=== PATIENT | male | born 1940 | race Caucasian/White ===

== ENCOUNTER 2018-06-15 19:44 | Inpatient (IN) ==
[2018-06-16] MEDS ORDERED: ONDANSETRON INJ 2 MG/ML 2 ML VIAL IV PRN (11:02)
[2018-06-16] MEDS ORDERED: MAGNESIUM HYDROXIDE SUSP 30 ML UDC PO PRN (11:02)
[2018-06-16] MEDS ORDERED: NITROGLYCERIN SL 0.4 MG/TAB TAB SL PRN (13:22)
[2018-06-16] MEDS ORDERED: GLUCOSE 40% GEL 15 GM TUBE PO PRN (13:24)
[2018-06-16] MEDS ORDERED: GLUCAGON FOR INJ 1 MG VIAL SQ PRN (13:24)
[2018-06-16] MEDS ORDERED: GLUCOSE 10 TABS/TUBE PO PRN (13:24)
[2018-06-16] MEDS ORDERED: CARBOHYDRATES FOR HYPOGLYCEMIA PO PRN (13:24)
[2018-06-16] MEDS ORDERED: DEXTROSE 50% 50 ML SYRINGE IV PRN (13:24)
--- NOTE | 2018-06-16 13:28 | History & Physical Report ---
Date of Service June 16, 2018 Assessment & Plan (1) GIB (gastrointestinal bleeding): Hx of same with work-up started at [facility], however pt left AMA prior to completion of workup States non-dx c-scope there, records requested Upon returning home, pt resumed eliquis and plavix and noted black stool GI c/s pending Hb 4.[address] [facility] ED -> 4 units PRBC -> 9.7 -> 9.2 Repeat CBC pending Imaging done at [facility] awaiting upload to system, will hold on further imaging for now NPO Protonix (2) SOB (shortness of breath): Resolved s/p transfusion Monitor Baseline is 4L O2 continuous (3) Hyperlipidemia: Holding statin (4) HTN (hypertension): continue home meds (5) GERD (gastroesophageal reflux disease): Protonix BID (6) Depression: continue home meds (7) DM type 2 (diabetes mellitus, type 2): SSI PRN while NPO (8) COPD (chronic obstructive pulmonary disease): continue home meds 4L O2 baseline continuous (9) CHF (congestive heart failure): continue home meds (10) CAD (coronary artery disease): Hx of stents Resume plavix when able (11) Afib: Resume eliquis when able (12) ARF (acute renal failure): Uncertain baseline cr Monitor with IVF Repeat cr pending (13) Iron deficiency: Holding iron for now (14) DVT prophylaxis: SCDs given above History of Present Illness Primary Care Provider: NO PCP 77 y/o M who was transferred here from [facility] ED for sx GIB. Pt with hx of same issue and was admitted to [facility]. He was transfused there. He states he had a c-scope but was told he did not drink enough prep and they could not see his colon well enough for a conclusion scope. It appears that at that time pt became frustrated and left AMA. Upon return to home, he resumed his blood thinners. Pt presented to the ED at [facility] on 06/14 with SOB. He had been accepted back to [facility] for continuation of work-up, however I received a call at 7p on 06/15 from the ED at [facility] stating that pt had been there for over 24 hours awaiting transfer but that [place] still did not have a bed. Pt received 4 units PRBC while at [facility]. Hb was 4.9 on presentation, rechecks were 9.7 -> 9.2. There were no labs from today. There is no GI care at [facility] and given length of time pt waited for acceptance to [place], pt was approved for transfer to [facility] for ongoing workup. Pt states his SOB is resolved. He states he is on 4L O2 at baseline and feels much better. Pt states that prior to coming to the ED at [facility] on 06/14, he noted black stools. No diarrhea. No chest pain. Pt denies fever, abd pain, n/v, LE pain or swelling. Allergies Allergy/AdvReac Type Severity Reaction Status Date / Time Penicillins Allergy Intermediate Unknown Verified 06/16/18 13:10 codeine Allergy Unknown Unknown Verified 06/16/18 13:10 diazepam Allergy Unknown Unknown Verified 06/16/18 13:10 niacin Allergy Unknown Unknown Verified 06/16/18 13:10 narcotics Allergy Unknown Uncoded 06/16/18 13:11 Home Medications Home Medications Medication Instructions Recorded Confirmed Type albuterol sulfate [ProAir HFA] 1 puff INHALATION Q4H PRN 06/16/18 06/16/18 History apixaban [Eliquis] 5 mg PO BID 06/16/18 06/16/18 History atorvastatin 80 mg PO DAILY 06/16/18 06/16/18 History carvedilol [Coreg] 25 mg PO BID 06/16/18 06/16/18 History clopidogrel [Plavix] 75 mg PO DAILY 06/16/18 06/16/18 History ferrous sulfate [iron] 150 mg PO DAILY 06/16/18 06/16/18 History rkrctbghpoz-aszjykhsd-jjceedqv 1 inh INHALATION DAILY 06/16/18 06/16/18 History [Trelegy Ellipta] folic acid 1 mg PO DAILY 06/16/18 06/16/18 History furosemide [Lasix] 40 mg PO DAILY 06/16/18 06/16/18 History hypromellose [Gonak] 1 drp OPHTHALMIC (EYE) QID PRN 06/16/18 06/16/18 History insulin aspart U-100 [Novolog 4 unit SUBCUT ACHS 06/16/18 06/16/18 History Flexpen U-100 Insulin] insulin glargine U-300 conc 15 unit SUBCUT DAILY 06/16/18 06/16/18 History [[place] SoloStar U-300 Insulin] nitroglycerin [Nitrostat] 0.4 mg SUBLINGUAL DIRECTED PRN 06/16/18 06/16/18 History omega-3 fatty acids-fish oil [Fish 1,000 cap PO DAILY 06/16/18 06/16/18 History Oil] pantoprazole [Protonix] 40 mg PO DAILY 06/16/18 06/16/18 History pregabalin [Lyrica] 75 mg PO BID 06/16/18 06/16/18 History ranitidine HCl [Zantac] 300 mg PO DAILY 06/16/18 06/16/18 History spironolactone [Aldactone] 12.5 mg PO DAILY 06/16/18 06/16/18 History Past Med/Surg History Family History Father Heart attack Social History Current Living Situation: Spouse Other Information That Helps Us Care for You: No Feels Safe at Home: Yes Safety Concerns: Feels Safe At This Time Smoking Status: Former smoker Smoking End Date: 2007 Hx Alcohol Use: No Hx Substance Use: No Beliefs That Will Affect Care: None Preferred Language: Occitan Communication Ability: Effective Reel Cutter Required: No Review of Systems Pertinent positives and negatives reviewed in HPI--all others negative Physical Exam 2 Vital Signs (Past 24 Hours): Last Vital Signs Temp 36.4 C L 06/16/18 10:53 Pulse 72 06/16/18 10:53 Resp 18 06/16/18 10:53 BP 168/68 H 06/16/18 10:53 Pulse Ox 94 06/16/18 10:53 Constitutional: WD/WN, vitals as above Eyes: normal visual alcantar by confrontation and + anicteric sclerae Neck: normal visual inspection and trachea midline Respiratory: normal respiratory effort, lungs clear to auscultation Cardiovascular: Rate/Rhythm: regular rate and regular rhythm Gastrointestinal (Abdomen): Inspection/Auscultation: abdomen not distended Percussion/Palpation: abdomen soft; abdomen nontender Musculoskeletal: Head/Neck/Chest: normocephalic and head atraumatic negative for edema, peripheral pulses intact Skin: no rashes, warm and dry Neurologic: awake; not confused Speech / Cognition: normal speech Psychiatric: A+Ox3, euthymic affect Code Status & VTE Plan Code Status Full code VTE Prophylaxis Plan VTE Prophylaxis will be ordered: Yes
[2018-06-16] MEDS ORDERED: ALBUTEROL HFA 8 GM INHALER INH PRN (14:00)
[2018-06-16 14:04] LABS: Basophils # (auto) 0.02 K/uL (0-0.2); Basophils % (auto) 0.2 %; Eosinophils # (auto) 0.21 K/uL (0-0.5); Eosinophils % (auto) 2.6 %; Hematocrit (blood only) 31.5 % (42-52); Immature Granulocytes # (auto) 0.04 K/uL (0.00-0.02); Immature Granulocytes % (auto) 0.5 %; Lymphocytes # (auto) 0.86 K/uL (1.2-3.4); Lymphocytes % (auto) 10.6 %; Mean Corpuscular Hgb Conc 31.7 g/dL (32-36); Mean Corpuscular Volume 90.5 fL (80-100); Mean Platelet Volume 10.7 fL (7.4-10.4); Monocytes # (auto) 0.46 K/uL (0.11-0.59); Monocytes % (auto) 5.7 %; Neutrophils % (auto) 80.4 %; Platelet Count 137 K/uL (130-400); RDW Coefficient of Variation 18.6 % (11.5-14.5); RDW Standard Deviation 57.2 fL (36.4-46.3); Red Blood Count 3.48 M/uL (4.7-6.1); White Blood Count 8.09 K/uL (4.8-10.8)
[2018-06-16] MEDS: D5NSS + 20MEQ KCL 20 MEQ/1,000 ML BAG IV SCH (14:17)
[2018-06-16 14:23] LABS: Albumin Level 3.1 gm/dl (3.4-5.0); Bilirubin Direct 0.1 mg/dl (0-0.2); Bilirubin,Total 0.5 mg/dl (0.2-1); Total Protein 6.4 gm/dl (6.4-8.2)
[2018-06-16] MEDS ORDERED: Nursing to Pharmacy Communication ONE (15:31)
[2018-06-16] MEDS ORDERED: INSULIN ASPART 100 UNITS/ML 3 ML PEN SC SCH (16:30)
--- NOTE | 2018-06-16 17:45 | CT Scan Report ---
CT abd pelvis oral con only CT DOSE: 612.69 mGy.cm HISTORY: acute blood loss anemia TECHNIQUE: Multiaxial CT images of the abdomen and pelvis were performed following the use of oral co ntrast. A dose lowering technique was utilized adhering to the principles of ALARA. COMPARISON STUDY: None. FINDINGS: Dependent basilar atelectasis with moderate peribronchial thickening. Probable infiltrate o f the lingula. Liver spleen and pancreas are unremarkable. Gallstones are present within the gallblad logan lumen. There are multiple bilateral renal as well as renal vascular calcifications. These are non obstructive finding. As 1 cm hyperdense cyst lower pole left kidney. Operative changes consistent with a prior ventral hernia repair. Small medical of bowel considered no nobstructive right anterior abdominal wall. Mildly distended bladder. Considerable atherosclerotic ch trina of the abdominal aorta as well as iliac vasculature with multifocal areas of significant narrowi ng. 5 mm nonobstructing calculus distal right ureter. IMPRESSION: 1. Nonobstructive bowel pattern. 2. Gallstones. 3. Bibasilar atelectatic change with a probable lingular infiltrate. 4. 5 mm nonobstructing distal right ureteral calculus. 6. Considerable atherosclerotic change of the abdominal and pelvic arterial vasculature with multifoc al areas of significant stenotic change. 7. Ventral hernia repair with 2 adjacent bowel containing nonobstructive ventral hernias. 8. Nonobstructive bowel pattern. The above report was generated using voice recognition software. It may contain grammatical, syntax or spelling errors. Electronically signed by: Rios Knott M.D. 06/16/2018 5:44 PM
[2018-06-16] MEDS: INSULIN ASPART 100 UNITS/ML 3 ML PEN SC SCH (18:27)
[2018-06-16] MEDS: CARVEDILOL 25 MG TAB PO SCH (20:23)
[2018-06-16] MEDS: PREGABALIN 75 MG CAP PO SCH (20:23)
[2018-06-16] MEDS: PANTOprazole 40 MG in SYRINGE 0 ML IV SCH (20:24)
[2018-06-17] MEDS: INSULIN ASPART 100 UNITS/ML 3 ML PEN SC SCH ×4 (00:11→21:06)
[2018-06-17] MEDS: D5NSS + 20MEQ KCL 20 MEQ/1,000 ML BAG IV SCH (00:14)
[2018-06-17 07:11] LABS: BUN Creatinine Ratio 41.3 (10-20); Calcium 8.4 mg/dl (8.5-10.1); Creatinine Clr Calc Pharmacy 35.3 ml/min; Est GFR (African American) 46.1; Est GFR (Non-African American) 39.7; Potassium 4.4 mmol/L (3.5-5.1)
[2018-06-17] MEDS: PANTOprazole 40 MG in SYRINGE 0 ML IV SCH (08:10)
[2018-06-17] MEDS: CARVEDILOL 25 MG TAB PO SCH ×2 (08:11→21:05)
[2018-06-17] MEDS: ATORVASTATIN 40 MG TAB PO SCH (08:12)
[2018-06-17] MEDS: SPIRONOLACTONE 25 MG TAB PO SCH (08:12)
[2018-06-17] MEDS: PREGABALIN 75 MG CAP PO SCH ×2 (08:15→21:05)
[2018-06-17] MEDS: SODIUM CHLORIDE 0.45 % 1,000 ML IV SCH ×2 (08:21→21:06)
--- NOTE | 2018-06-17 08:46 | Consultation Report ---
DATE OF CONSULTATION: 06/16/2018 GASTROENTEROLOGY CONSULTATION RACE: . ATTENDING PHYSICIAN: Omayra Barron MD CONSULTING PHYSICIAN: Moe Morgan DO REASON FOR CONSULTATION: GI bleed. HISTORY OF PRESENT ILLNESS: Fred Livingston is a 77-year-old male who was transferred today to our facility from [facility] for symptoms of GI bleed. He had previously had a workup at [facility] recently within the past week for symptomatic GI bleed with melena and did undergo both an EGD and colonoscopy per the patient with no findings on the EGD and the colonoscopy was felt be inconclusive due to a poor bowel prep. The patient signed out AMA. He presented to [facility] on 06/14/2018 with shortness of breath. He was noted to have a hemoglobin of 4.9 on presentation and did receive 4 units of packed red blood cells. Upon his transfer here today, he did have a repeat H and H which was noted to be 10 and 31.5. He states that he has not had a bowel movement in approximately 2 days and denies any abdominal pain, fevers, chills, nausea, vomiting, hematemesis, melena or hematochezia at present. I was asked to see the patient in consultation for a GI bleed, though at present the patient is having no overt signs of GI blood loss. I do not have records from [facility] where he had his most recent workup and we are awaiting those at present. Currently, he denies any lightheadedness or dizziness. He states that he feels much better since he has arrived at [facility], though can provide no specifics as to why. PAST MEDICAL HISTORY: Includes atrial fibrillation, coronary artery disease, heart failure, COPD, type 2 diabetes, depression, GERD, hypertension, hyperlipidemia, iron deficiency anemia. PAST SURGICAL HISTORY: Includes an appendectomy, left xbuch-ezk-zatct amputation. ALLERGIES: PENICILLINS, CODEINE, DIAZEPAM, AND NIACIN. MEDICATIONS: At present include albuterol HFA 1 puff via inhaler q. 4 hours p.r.n., Tylenol 650 mg p.o. q.4h. p.r.n., Lipitor 80 mg p.o. daily, carvedilol 25 mg p.o. b.i.d., furosemide 40 mg daily, NovoLog FlexPen subQ a.c. and at bedtime, sublingual nitroglycerin tablets 0.4 mg as directed p.r.n., Zofran 4 mg IV q.6h. p.r.n., Lyrica 75 mg p.o. b.i.d., pantoprazole 40 mg IV b.i.d., spironolactone 12.5 mg p.o. daily. SOCIAL HISTORY: He is . Former smoker with a [id number] history. He denies any alcohol or illicit drug use. FAMILY HISTORY: Negative for GI malignancy or inflammatory bowel disease. REVIEW OF SYSTEMS: Negative x12 system review other than pertinent positives listed in the HPI. PHYSICAL EXAMINATION: VITAL SIGNS: Temp 36.4, pulse 72, respirations 18, blood pressure 168/68, pulse ox 94% on 4 liters via nasal cannula. GENERAL: He is awake, cooperative, chronic ill appearing, in no acute distress. HEAD: Normocephalic, atraumatic. EYES: Pupils equally round. Extraocular muscles are intact. ENT: External evaluation of ears and nose are normal. Oropharynx is clear. NECK: Soft, supple. CHEST: Clear to auscultation bilaterally. CARDIOVASCULAR SYSTEM: Regular rate and rhythm. ABDOMEN: Soft, nontender, nondistended. Positive bowel sounds. EXTREMITIES: Aforementioned left ysmjo-jik-mnewx amputation. SKIN: No rash noted. LABORATORY STUDIES: Reviewed in the HPI. IMPRESSION: A 77-year-old male who presented with iron deficiency anemia and history of GI bleed with melena which has subsequently resolved. PLAN: At the present time, I would recommend continuing him on Protonix 40 mg IV b.i.d. I would continue to hold his Plavix and Eliquis therapy at this time. Would recommend that he undergo a CT scan of the abdomen and pelvis with p.o. contrast only and I would recommend obtaining records from both [facility] and [facility] to further evaluate his workup so that we are not redundant in this. He currently is having no overt GI bleeding and therefore I would not recommend any invasive testing at this time. Once again, thanks for allowing me to participate in the care of this patient. If you have any further questions, please do not hesitate in contacting me.
[2018-06-17] MEDS ORDERED: FUROSEMIDE 40 MG TAB PO SCH (09:00)
--- NOTE | 2018-06-17 09:28 | Gastroenterology Progress Note ---
Date of Service June 17, 2018 Assessment & Plan (1) Iron deficiency: 1. Await records in regard to recent endoscopic work up. 2. Okay to advance to clear liquid diet. 3. Continue supportive care. Supervising Physician Co-Signing Physician Notes Agree with MAYA Norris as above Change in patient's status since her evaluation. Nursing and patient report 3 black BM's today. H/H dropped to 9.1 Abd: Soft, NT, ND, +BS NPO after clear liquid breakfast tomorrow EGD tomorrow afternoon. Subjective Patient reports feeling well. Tolerating ice chips. No further melena. Denies n/ v and abdominal pain. Requests diet advancement. CT a/p demonstrated non- obstructed bowel gas pattern. Respiratory: no cough and no dyspnea Cardiovascular: no chest pain and no chest pain with activity Gastrointestinal: as per Subjective / HPI Physical Exam 2 Vital Signs (Past 24 Hours): Last Vital Signs Temp 37.0 C 06/17/18 07:09 Pulse 72 06/17/18 07:09 Resp 18 06/17/18 07:09 BP 121/50 L 06/17/18 07:09 Pulse Ox 97 06/17/18 07:09 Respiratory: normal respiratory effort, lungs clear to auscultation Cardiovascular: Rate/Rhythm: regular rate and regular rhythm Gastrointestinal (Abdomen): Inspection/Auscultation: normal bowel sounds Percussion/Palpation: abdomen soft; abdomen nontender Psychiatric: Orientation: alert and oriented x 3
[2018-06-17 10:01] LABS: Estimated Average Glucose 103 mg/dl
[2018-06-17] MEDS ORDERED: Nursing to Pharmacy Communication ONE (11:22)
[2018-06-17] MEDS ORDERED: INSULIN ASPART 100 UNITS/ML 3 ML PEN SC SCH (11:30)
[2018-06-17 12:23] LABS: Hematocrit (blood only) 28.4 % (42-52); Hemoglobin 9.1 g/dL (14.0-18.0); Mean Corpuscular Volume 92.2 fL (80-100); Mean Platelet Volume 10.5 fL (7.4-10.4); Platelet Count 120 K/uL (130-400); RDW Coefficient of Variation 17.8 % (11.5-14.5); RDW Standard Deviation 56.5 fL (36.4-46.3); Red Blood Count 3.08 M/uL (4.7-6.1)
[2018-06-17 13:06] LABS: BUN Creatinine Ratio 32.6 (10-20); Calcium 8.2 mg/dl (8.5-10.1); Creatinine Clr Calc Pharmacy 32.9 ml/min; Est GFR (African American) 42.3; Est GFR (Non-African American) 36.5; Potassium 4.5 mmol/L (3.5-5.1)
--- NOTE | 2018-06-17 14:35 | Hospitalist Progress Note ---
Date of Service June 17, 2018 Assessment & Plan (1) GIB (gastrointestinal bleeding): (2) SOB (shortness of breath): (3) Hyperlipidemia: (4) HTN (hypertension): (5) GERD (gastroesophageal reflux disease): (6) Depression: (7) DM type 2 (diabetes mellitus, type 2): (8) COPD (chronic obstructive pulmonary disease): (9) CHF (congestive heart failure): (10) CAD (coronary artery disease): (11) Afib: (12) ARF (acute renal failure): (13) Iron deficiency: (14) DVT prophylaxis: 77 y/o M who was transferred here from LT[facility] ED for sx GIB on June 16, 2018 Per report, pt with hx of same issue and was admitted to [facility], was transfused there, had a c-scope but was told he did not drink enough prep and they could not see his colon well enough for a conclusion scope, became frustrated and left AMA. Upon return to home, he resumed his blood thinners. gastrointestinal bleeding resumed eliquis and plavix and noted black stool after back from [facility], Hb 4.9 at [facility] ED -> 4 units PRBC -> 9.7 -> 9.2, hemoglobin was 10 upon admission , this morning is 9.2 Imaging done at [facility] awaiting upload to system, will hold on further imaging for now NPO Protonix GI saw the patient, pending records from [facility] and then will make decision chronic respiratory failure home O2 dependent Baseline is 4L O2 continuous, history of COPD, currently has no exacerbation Dyslipidemia, hypertension GERD, continue current medication DM type 2 (diabetes mellitus, type 2): Continue insulin sliding scale when on n.p.o., hx of CAD history of stent, CHF, currently compensated watch input and output, Resume plavix when able Afib: Resume eliquis when able With patient and family present, discussed the risk and benefit of holding Plavix and Eliquis, I told him when hold his blood thinners patient has A. fib the risk of stroke will be in higher chance, they fully understand DVT prophylaxis: SCDs given above, no heparin productive because of GI bleeding Subjective Generally doing okay, denies dizziness, has shortness of breath and baseline, on oxygen at home, has been reported to time dark black stool, moderate amount, was up to the restroom by himself with service assistant, Review of Systems Constitutional: Positive weakness, or fatigue Respiratory: Occasional cough, no sputum, wheezing, or dyspnea on exertion Cardiac: No chest pain, No orthopnea, No PND, Abdomen: No pain, No nausea, No vomiting, Musculoskeletal: No joint pain, No muscle pain, No swelling, No calf pain, No problem reported : No dysuria, No urinary frequency, No incontinence, Neurologic: No paralysis, No weakness, No numbness/tingling, Psychiatric: No depression symptoms, No anhedonism, No anxiety, Heme: No bruising, No clotting problems, Skin: No rash, No itch, No new/changing skin lesions, Physical Exam 2 Vital Signs (Past 24 Hours): Last Vital Signs Temp 36.4 C L 06/17/18 10:40 Pulse 72 06/17/18 10:40 Resp 17 06/17/18 10:40 BP 132/56 L 06/17/18 10:40 Pulse Ox 95 06/17/18 10:40 Physical Exam: General Appearance: Chronically ill, weak looking , no apparent distress, on nasal cannula oxygen Eyes: normal inspection, PERRL, EOMI, sclerae normal ENT: normal ENT inspection, hearing grossly normal, pharynx normal Neck: supple, no adenopathy, thyroid normal, no JVD, no carotid bruits, trachea midline Respiratory/Chest: chest non-tender, normal breath sounds, no respiratory distress, Cardiovascular: regular rate, rhythm, no JVD, no murmur Abdomen: normal bowel sounds, non tender, soft, no organomegaly, Extremities: normal range of motion, non-tender, normal inspection, joint has no limited range of motion, capillary refill is normal, no cyanosis clubbing Neurologic/Psychiatric: radio despatcher II-XII nml as tested, no motor/sensory deficits, alert, normal mood/affect, oriented x 3 Skin: normal color, warm/dry, no rash Lymphatic: no adenopathy Results & Data Laboratory Results Laboratory Results - last 24 hr 06/16/18 06/16/18 06/17/18 13:43 18:11 00:08 WBC RBC Hgb Hct MCV MCH MCHC RDW Std Deviation RDW Coeff of Pedro Plt Count MPV Sodium Potassium Chloride Carbon Dioxide Anion Gap BUN Creatinine Est Cr Clr Drug Dosing Est GFR ( Amer) Est GFR (Non-Af Amer) BUN/Creatinine Ratio Glucose POC Glucose 186 H 146 H Estimat Average Glucose Hemoglobin A1c Calcium Blood Type A Positive Antibody Screen NEGATIVE 06/17/18 06/17/18 06/17/18 05:57 06:11 06:11 WBC RBC Hgb Hct MCV MCH MCHC RDW Std Deviation RDW Coeff of Pedro Plt Count MPV Sodium 149 H Potassium 4.4 Chloride 115 H Carbon Dioxide 29 Anion Gap 5.0 BUN 68 H Creatinine 1.64 H Est Cr Clr Drug Dosing 35.3 Est GFR ( Amer) 46.1 Est GFR (Non-Af Amer) 39.7 BUN/Creatinine Ratio 41.3 H Glucose 174 H POC Glucose 187 H Estimat Average Glucose 103 Hemoglobin A1c 5.2 Calcium 8.4 L Blood Type Antibody Screen 06/17/18 06/17/18 06/17/18 11:25 12:13 12:13 WBC 6.20 RBC 3.08 L Hgb 9.1 L Hct 28.4 L MCV 92.2 MCH 29.5 MCHC 32.0 RDW Std Deviation 56.5 H RDW Coeff of Pedro 17.8 H Plt Count 120 L MPV 10.5 H Sodium 144 Potassium 4.5 Chloride 113 H Carbon Dioxide 25 Anion Gap 6.0 BUN 57 H Creatinine 1.76 H Est Cr Clr Drug Dosing 32.9 Est GFR ( Amer) 42.3 Est GFR (Non-Af Amer) 36.5 BUN/Creatinine Ratio 32.6 H Glucose 239 H POC Glucose 213 H Estimat Average Glucose Hemoglobin A1c Calcium 8.2 L Blood Type Antibody Screen
[2018-06-17] MEDS: PANTOprazole 40 MG TAB PO SCH (21:10)
[2018-06-18 06:36] LABS: Basophils # (auto) 0.01 K/uL (0-0.2); Basophils % (auto) 0.2 %; Eosinophils # (auto) 0.29 K/uL (0-0.5); Eosinophils % (auto) 5.4 %; Hematocrit (blood only) 27.9 % (42-52); Hemoglobin 9.1 g/dL (14.0-18.0); Immature Granulocytes # (auto) 0.01 K/uL (0.00-0.02); Immature Granulocytes % (auto) 0.2 %; Lymphocytes % (auto) 14.8 %; Mean Corpuscular Hgb Conc 32.6 g/dL (32-36); Mean Corpuscular Volume 90.3 fL (80-100); Mean Platelet Volume 10.8 fL (7.4-10.4); Monocytes # (auto) 0.33 K/uL (0.11-0.59); Monocytes % (auto) 6.1 %; Neutrophils # (auto) 3.98 K/uL (1.4-6.5); Neutrophils % (auto) 73.3 %; Platelet Count 119 K/uL (130-400); RDW Standard Deviation 53.8 fL (36.4-46.3); Red Blood Count 3.09 M/uL (4.7-6.1); White Blood Count 5.42 K/uL (4.8-10.8)
[2018-06-18 07:10] LABS: BUN Creatinine Ratio 28.1 (10-20); Calcium 7.8 mg/dl (8.5-10.1); Creatinine Clr Calc Pharmacy 36.1 ml/min; Est GFR (African American) 47.5; Est GFR (Non-African American) 40.9; Potassium 4.1 mmol/L (3.5-5.1)
[2018-06-18 07:11] LABS: Phosphorus 4.3 mg/dl (2.5-4.9)
[2018-06-18] MEDS: INSULIN ASPART 100 UNITS/ML 3 ML PEN SC SCH ×5 (08:10→20:08)
[2018-06-18] MEDS: SPIRONOLACTONE 25 MG TAB PO SCH (08:12)
[2018-06-18] MEDS: CARVEDILOL 25 MG TAB PO SCH ×2 (08:13→20:02)
[2018-06-18] MEDS: ATORVASTATIN 40 MG TAB PO SCH (08:13)
[2018-06-18] MEDS: PANTOprazole 40 MG TAB PO SCH ×2 (08:14→20:01)
[2018-06-18] MEDS: SODIUM CHLORIDE 0.45 % 1,000 ML IV SCH ×2 (08:14→23:36)
[2018-06-18] MEDS: PREGABALIN 75 MG CAP PO SCH ×2 (08:17→20:07)
--- NOTE | 2018-06-18 10:51 | Gastroenterology Progress Note ---
Date of Service June 18, 2018 Assessment & Plan (1) Iron deficiency: 1. NPO for now. 2. EGD by Dr. Morgan for further evaluation. 3. Continue Protonix 40 mg BID. 4. Additional recommendations will be made pending results of testing. Supervising Physician Co-Signing Physician Notes Agree with MAYA Norirs as above Abd: Soft, NT, ND, +BS Continue current therapy EGD today Subjective Patient reports feeling well. NPO for now. Patient developed melena yesterday afternoon. Denies n/v and abdominal pain. EGD has been ordered for evaluation today. Gastrointestinal: as per Subjective / HPI Physical Exam 2 Vital Signs (Past 24 Hours): Last Vital Signs Temp 36.4 C L 06/18/18 07:33 Pulse 79 06/18/18 07:33 Resp 17 06/18/18 07:33 BP 117/53 L 06/18/18 07:33 Pulse Ox 93 06/18/18 07:33 Constitutional: WD/WN, vitals as above Respiratory: normal respiratory effort Auscultation: lungs clear to auscultation bilaterally Cardiovascular: Rate/Rhythm: regular rate and regular rhythm Heart Sounds: + murmur Gastrointestinal (Abdomen): Inspection/Auscultation: normal bowel sounds Percussion/Palpation: abdomen soft; abdomen nontender Psychiatric: A+Ox3, euthymic affect
--- NOTE | 2018-06-18 11:56 | Anesthesiology Consultation ---
Date of Service June 18, 2018 Assessment & Plan (1) Encounter for pre-operative examination: Chart Review Chart Review: Acceptable Risk for Surgery and Patient NOT seen in Pre Admission Testing Consults Requested none NPO Date Last Intake of Fluids: 06/18/18 Time Last Intake of Fluids: 08:00 Date Last Intake of Solids: 06/16/18 Time Last Intake of Solids: 18:00 History Surgery Operation Date: 06/18/18 10:25 Proposed Procedures p Esophagogastroduodenoscopy Dr Eddie Crystal Case, DO Height/Weight Height: 5 ft 7 in Weight: 75 kg Allergies Allergy/AdvReac Type Severity Reaction Status Date / Time Penicillins Allergy Intermediate Unknown Verified 06/16/18 13:10 codeine Allergy Unknown Unknown Verified 06/16/18 13:10 diazepam Allergy Unknown Unknown Verified 06/16/18 13:10 niacin Allergy Unknown Unknown Verified 06/16/18 13:10 narcotics Allergy Unknown Uncoded 06/16/18 13:11 Medications Home Medications Medication Instructions Recorded Confirmed Last Taken albuterol sulfate [ProAir HFA] 1 puff INHALATION Q4H PRN 06/16/18 06/16/18 Unknown apixaban [Eliquis] 5 mg PO BID 06/16/18 06/16/18 Unknown atorvastatin 80 mg PO DAILY 06/16/18 06/16/18 Unknown carvedilol [Coreg] 25 mg PO BID 06/16/18 06/16/18 Unknown clopidogrel [Plavix] 75 mg PO DAILY 06/16/18 06/16/18 Unknown ferrous sulfate [iron] 150 mg PO DAILY 06/16/18 06/16/18 Unknown aobunyfgxse-tgyhviwdi-xgjxifqv 1 inh INHALATION DAILY 06/16/18 06/16/18 Unknown [Trelegy Ellipta] folic acid 1 mg PO DAILY 06/16/18 06/16/18 Unknown furosemide [Lasix] 40 mg PO DAILY 06/16/18 06/16/18 Unknown hypromellose [Gonak] 1 drp OPHTHALMIC (EYE) QID PRN 06/16/18 06/16/18 Unknown insulin aspart U-100 [Novolog 4 unit SUBCUT ACHS 06/16/18 06/16/18 Unknown Flexpen U-100 Insulin] insulin glargine U-300 conc 15 unit SUBCUT DAILY 06/16/18 06/16/18 Unknown [[place] RoblesoStar U-300 Insulin] nitroglycerin [Nitrostat] 0.4 mg SUBLINGUAL DIRECTED PRN 06/16/18 06/16/18 Unknown omega-3 fatty acids-fish oil [Fish 1,000 cap PO DAILY 06/16/18 06/16/18 Unknown Oil] pantoprazole [Protonix] 40 mg PO DAILY 06/16/18 06/16/18 Unknown pregabalin [Lyrica] 75 mg PO BID 06/16/18 06/16/18 Unknown ranitidine HCl [Zantac] 300 mg PO DAILY 06/16/18 06/16/18 Unknown spironolactone [Aldactone] 12.5 mg PO DAILY 06/16/18 06/16/18 Unknown Active Medications Generic Name Dose Route Start Last Admin Trade Name Freq PRN Reason Stop Dose Admin Atorvastatin Calcium 80 mg 06/17/18 09:00 06/18/18 08:13 Lipitor PO 07/17/18 08:59 80 mg DAILY АННА Administration Carvedilol 25 mg 06/16/18 21:00 06/18/18 08:13 Coreg PO 07/16/18 20:59 25 mg BID АННА Administration Sodium Chloride 1,000 mls @ 80 mls/hr 06/17/18 08:15 06/18/18 11:17 1/2 Nss IV 07/17/18 08:14 80 mls/hr .[id number] АННА Infusion Insulin Aspart 0 units 06/17/18 16:25 06/18/18 11:37 Novolog Flexpen SC 07/17/18 11:29 Not Given ACHS АННА Miscellaneous 1 ea 06/16/18 16:00 06/18/18 08:12 Order Awaiting Action N/A 07/16/18 15:59 Not Given QS АННА Miscellaneous 1 ea 06/16/18 16:00 06/18/18 08:12 Order Awaiting Action N/A 07/16/18 15:59 Not Given QS АННА Miscellaneous 15 - 30 gm 06/16/18 13:24 06/17/18 16:18 Carbohydrates For Hypoglycemia PO 07/16/18 13:23 30 gm UD PRN Administration Hypoglycemia Treatment Pantoprazole Sodium 40 mg 06/17/18 21:00 06/18/18 08:14 Protonix PO 07/17/18 20:59 40 mg BID АННА Administration Pregabalin 75 mg 06/16/18 21:00 06/18/18 08:17 Lyrica PO 07/16/18 20:59 75 mg BID АННА Administration Spironolactone 12.5 mg 06/17/18 09:00 06/18/18 08:12 Aldactone PO 07/17/18 08:59 12.5 mg DAILY АННА Administration Past Medical History Medical History Iron deficiency Afib CAD (coronary artery disease) CHF (congestive heart failure) COPD (chronic obstructive pulmonary disease) DM type 2 (diabetes mellitus, type 2) Depression GERD (gastroesophageal reflux disease) HTN (hypertension) Hyperlipidemia Past Family History Family History Father Heart attack Social History Smoking Status: Former smoker Smoking End Date: 2007 Hx Alcohol Use: No Hx Substance Use: No Physical Exam Vital Signs Last Vital Signs Temp 36.3 C L 06/18/18 11:34 Pulse 73 06/18/18 11:34 Resp 19 06/18/18 11:34 BP 135/58 L 06/18/18 11:34 Pulse Ox 98 06/18/18 11:34 Testing Laboratory Results 06/18/18 06:22 06/18/18 06:22 Blood Type A Positive 06/16/18 13:43 Antibody Screen NEGATIVE 06/16/18 13:43 Hemoglobin A1c 5.2 % (4.5-5.6) 06/17/18 06:11 06/18/18 06/18/18 10:58 06:57 POC Glucose 149 H 162 H
[2018-06-18] MEDS ORDERED: ePHEDrine sulfate 50 MG/ML AMP IV PRN (11:59)
[2018-06-18] MEDS ORDERED: ATROPINE SULFATE 0.1 MG/ML 10ML SYR IV PRN (11:59)
[2018-06-18] MEDS ORDERED: KETAMINE HCL INJ 50 MG/ML 10 ML VIAL ONE (12:15)
[2018-06-18] MEDS ORDERED: PROPOFOL IV EMULSION 10 MG/ML 20 ML VIAL IV ONE (12:15)
[2018-06-18] MEDS ORDERED: LIDOCAINE HCL 2% 2 ML VIAL/AMP(20MG/ML) INFIL ONE (12:15)
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
--- NOTE | 2018-06-18 12:27 | GI REPORT ---
Patient Name: Fred Livingston Procedure Date: 06/18/2018 11:58 AM Date of : 1940 Admit Type: Inpatient Age: 77 Gender: Male Attending MD: Moe Morgan DO Procedure: Upper GI endoscopy Providers: Moe Morgan DO Referring MD: Omayra Barron Indications: Melena Medicines: Monitored Anesthesia Care Complications: No immediate complications. Estimated Blood Loss: Estimated blood loss: none. Procedure: Pre-Anesthesia Assessment: - Prior to the procedure, a History and Physical was performed, and patient medications and allergies were reviewed. The patient's tolerance of previous anesthesia was also reviewed. The risks and benefits of the procedure and the sedation options and risks were discussed with the patient. All questions were answered, and informed consent was obtained. Prior Anticoagulants: The patient last took Eliquis (apixaban) 3 days and Plavix (clopidogrel) 3 days prior to the procedure. ASA Grade Assessment: IV - A patient with severe systemic disease that is a constant threat to life. After reviewing the risks and benefits, the patient was deemed in satisfactory condition to undergo the procedure. After obtaining informed consent, the endoscope was passed under direct vision. Throughout the procedure, the patient's blood pressure, pulse, and oxygen saturations were monitored continuously. The Endoscope was introduced through the mouth, and advanced to the third part of duodenum. The upper GI endoscopy was accomplished without difficulty. The patient tolerated the procedure well. Findings: The esophagus was normal. The stomach was normal. The examined duodenum was normal. Impression: - Normal esophagus. - Normal stomach. - Normal examined duodenum. - No specimens collected. Recommendation: - Return patient to [facility] for [facility] care. - Resume previous diet. - Continue present medications. Moe Morgan DO 06/18/2018 12:27:28 PM This report has been signed electronically. Note Initiated On: 06/18/2018 11:58 AM Number of Addenda: 0 I attest to the content of the Intraoperative Record and orders documented therein, exceptions below {[id number]}
[2018-06-18] MEDS: [UNRECOGNIZED DRUG - REMARK] INH SCH (14:20)
--- NOTE | 2018-06-18 15:20 | Anesthesiology Progress Note ---
Date of Service June 18, 2018 Anesthesia Post Procedure Vital Signs Vital Signs: Temp Pulse Resp BP Pulse Ox 06/18/18 15:02 36.5 C 67 18 165/68 H 100 06/18/18 14:43 36.4 C L 69 17 180/70 H 100 06/18/18 14:22 36.3 C L 70 17 158/59 H 100 06/18/18 14:03 36.3 C L 68 17 166/76 H 98 06/18/18 13:42 36.3 C L 63 17 172/84 H 100 06/18/18 13:02 63 18 152/60 H 97 06/18/18 12:47 63 18 128/56 L 97 06/18/18 12:30 66 18 112/49 L 98 06/18/18 11:34 36.3 C L 73 19 135/58 L 98 06/18/18 11:02 36.5 C 64 17 104/52 L 95 06/18/18 07:33 36.4 C L 79 17 117/53 L 93 06/18/18 03:22 36.6 C 73 18 123/63 96 06/17/18 22:50 36.4 C L 68 18 134/64 97 06/17/18 19:33 36.4 C L 75 18 138/61 99 Notes Mental Status: alert / awake / arousable Patient Amnestic to Procedure: Yes Nausea / Vomiting: adequately controlled Pain: adequately controlled Airway Patency, RR, SpO2: stable & adequate BP & HR: stable & adequate Hydration State: stable & adequate Anesthetic Complications: no major complications apparent and Pt Satisfied with anesthetic care
[2018-06-18] MEDS ORDERED: LAVAGE SOLUTION 4000ML PO SCH (20:00)
[2018-06-19 06:51] LABS: Basophils # (auto) 0.01 K/uL (0-0.2); Basophils % (auto) 0.2 %; Eosinophils # (auto) 0.37 K/uL (0-0.5); Eosinophils % (auto) 7.1 %; Hematocrit (blood only) 27.8 % (42-52); Hemoglobin 8.8 g/dL (14.0-18.0); Immature Granulocytes # (auto) 0.01 K/uL (0.00-0.02); Immature Granulocytes % (auto) 0.2 %; Lymphocytes # (auto) 0.39 K/uL (1.2-3.4); Lymphocytes % (auto) 7.4 %; Mean Corpuscular Hgb Conc 31.7 g/dL (32-36); Mean Corpuscular Volume 90.6 fL (80-100); Mean Platelet Volume 11.4 fL (7.4-10.4); Monocytes # (auto) 0.69 K/uL (0.11-0.59); Monocytes % (auto) 13.2 %; Neutrophils # (auto) 3.77 K/uL (1.4-6.5); Neutrophils % (auto) 71.9 %; Platelet Count 120 K/uL (130-400); RDW Coefficient of Variation 16.5 % (11.5-14.5); RDW Standard Deviation 52.9 fL (36.4-46.3); Red Blood Count 3.07 M/uL (4.7-6.1); White Blood Count 5.24 K/uL (4.8-10.8)
[2018-06-19 07:08] LABS: RBC Morphology Unremarkable
[2018-06-19 07:19] LABS: BUN Creatinine Ratio 24.1 (10-20); Calcium 7.9 mg/dl (8.5-10.1); Creatinine Clr Calc Pharmacy 40.4 ml/min; Est GFR (African American) 54.4; Est GFR (Non-African American) 46.9; Magnesium 1.9 mg/dl (1.8-2.4); Potassium 3.8 mmol/L (3.5-5.1)
[2018-06-19 07:22] LABS: Phosphorus 3.3 mg/dl (2.5-4.9)
[2018-06-19] MEDS: INSULIN ASPART 100 UNITS/ML 3 ML PEN SC SCH ×4 (08:06→21:16)
[2018-06-19] MEDS: [UNRECOGNIZED DRUG - REMARK] INH SCH (08:08)
[2018-06-19] MEDS: PREGABALIN 75 MG CAP PO SCH ×2 (08:22→21:16)
[2018-06-19] MEDS: PANTOprazole 40 MG TAB PO SCH ×2 (08:23→21:15)
[2018-06-19] MEDS: CARVEDILOL 25 MG TAB PO SCH ×2 (08:23→21:15)
[2018-06-19] MEDS: SPIRONOLACTONE 25 MG TAB PO SCH (08:23)
[2018-06-19] MEDS: ATORVASTATIN 40 MG TAB PO SCH (08:23)
--- NOTE | 2018-06-19 10:06 | Gastroenterology Progress Note ---
Date of Service June 19, 2018 Assessment & Plan (1) Iron deficiency: 1. NPO for now. 2. Colonoscopy for further evaluation. 3. Continue Protonix 40 mg BID. 4. Additional recommendations will be made pending results of testing. Supervising Physician Co-Signing Physician Notes Agree with MAYA Norris as above Abd: Soft, NT, ND, +BS Proceed with colonoscopy today for acute blood loss anemia and melena. Subjective Patient underwent EGD yesterday which was unremarkable. Dr. Morgan ordered colonoscopy for today. Patient did not complete bowel prep solution but states he is passing liquid stools. Denies n/v and abdominal pain. Physical Exam 2 Vital Signs (Past 24 Hours): Last Vital Signs Temp 37 C 06/19/18 06:55 Pulse 66 06/19/18 06:55 Resp 20 06/19/18 06:55 BP 128/63 06/19/18 06:55 Pulse Ox 96 06/19/18 06:55 Respiratory: normal respiratory effort, lungs clear to auscultation Cardiovascular: Rate/Rhythm: regular rate and regular rhythm Heart Sounds: + murmur Gastrointestinal (Abdomen): Inspection/Auscultation: + hyperactive bowel sounds Percussion/Palpation: abdomen soft; abdomen nontender Psychiatric: A+Ox3, euthymic affect
--- NOTE | 2018-06-19 10:24 | Anesthesiology Consultation ---
Date of Service June 19, 2018 Assessment & Plan Chart Review Chart Review: Acceptable Risk for Surgery and Patient NOT seen in Pre Admission Testing Consults Requested none ASA ASA4 NPO Date Last Intake of Fluids: 06/19/18 Time Last Intake of Fluids: 09:00 Date Last Intake of Solids: 06/14/18 Time Last Intake of Solids: 17:00 History Surgery Operation Date: 06/18/18 10:25 Proposed Procedures p Esophagogastroduodenoscopy Dr Eddie Crystal Case, DO Operation Date: 06/19/18 08:30 Proposed Procedures p Colonoscopy Dr. Eddie Crystal Case, DO Height/Weight Height: 5 ft 7 in Weight: 72.4 kg Allergies Allergy/AdvReac Type Severity Reaction Status Date / Time Penicillins Allergy Intermediate Unknown Verified 06/16/18 13:10 codeine Allergy Unknown Unknown Verified 06/16/18 13:10 diazepam Allergy Unknown Unknown Verified 06/16/18 13:10 niacin Allergy Unknown Unknown Verified 06/16/18 13:10 narcotics Allergy Unknown Uncoded 06/16/18 13:11 Medications Home Medications Medication Instructions Recorded Confirmed Last Taken albuterol sulfate [ProAir HFA] 1 puff INHALATION Q4H PRN 06/16/18 06/16/18 Unknown apixaban [Eliquis] 5 mg PO BID 06/16/18 06/16/18 Unknown atorvastatin 80 mg PO DAILY 06/16/18 06/16/18 Unknown carvedilol [Coreg] 25 mg PO BID 06/16/18 06/16/18 Unknown clopidogrel [Plavix] 75 mg PO DAILY 06/16/18 06/16/18 Unknown ferrous sulfate [iron] 150 mg PO DAILY 06/16/18 06/16/18 Unknown vfrrabxutkw-oekkqbhol-lbxclezb 1 inh INHALATION DAILY 06/16/18 06/16/18 Unknown [Trelegy Ellipta] folic acid 1 mg PO DAILY 06/16/18 06/16/18 Unknown furosemide [Lasix] 40 mg PO DAILY 06/16/18 06/16/18 Unknown hypromellose [Gonak] 1 drp OPHTHALMIC (EYE) QID PRN 06/16/18 06/16/18 Unknown insulin aspart U-100 [Novolog 4 unit SUBCUT ACHS 06/16/18 06/16/18 Unknown Flexpen U-100 Insulin] insulin glargine U-300 conc 15 unit SUBCUT DAILY 06/16/18 06/16/18 Unknown [[place] SoloStar U-300 Insulin] nitroglycerin [Nitrostat] 0.4 mg SUBLINGUAL DIRECTED PRN 06/16/18 06/16/18 Unknown omega-3 fatty acids-fish oil [Fish 1,000 cap PO DAILY 06/16/18 06/16/18 Unknown Oil] pantoprazole [Protonix] 40 mg PO DAILY 06/16/18 06/16/18 Unknown pregabalin [Lyrica] 75 mg PO BID 06/16/18 06/16/18 Unknown ranitidine HCl [Zantac] 300 mg PO DAILY 06/16/18 06/16/18 Unknown spironolactone [Aldactone] 12.5 mg PO DAILY 06/16/18 06/16/18 Unknown Active Medications Generic Name Dose Route Start Last Admin Trade Name Freq PRN Reason Stop Dose Admin Atorvastatin Calcium 80 mg 06/17/18 09:00 06/19/18 08:23 Lipitor PO 07/17/18 08:59 80 mg DAILY АННА Administration Carvedilol 25 mg 06/16/18 21:00 06/19/18 08:23 Coreg PO 07/16/18 20:59 25 mg BID АННА Administration Sodium Chloride 1,000 mls @ 80 mls/hr 06/17/18 08:15 06/18/18 23:36 1/2 Nss IV 07/17/18 08:14 80 mls/hr .[id number] АННА Administration Insulin Aspart 0 units 06/17/18 16:25 06/19/18 08:06 Novolog Flexpen SC 07/17/18 11:29 Not Given ACHS АННА Miscellaneous 1 ea 06/16/18 16:00 06/19/18 08:04 Order Awaiting Action N/A 07/16/18 15:59 Not Given QS АННА Miscellaneous 15 - 30 gm 06/16/18 13:24 06/17/18 16:18 Carbohydrates For Hypoglycemia PO 07/16/18 13:23 30 gm UD PRN Administration Hypoglycemia Treatment `Bzicpvk-Oyi-Ccns Pt 1 ea 06/18/18 15:00 06/19/18 08:08 Own Med INH 07/18/18 14:59 1 dose DAILY АННА Administration Pantoprazole Sodium 40 mg 06/17/18 21:00 06/19/18 08:23 Protonix PO 07/17/18 20:59 40 mg BID АННА Administration Polyethylene Glycol/Electrolytes 16 dose 06/18/18 20:00 06/18/18 20:00 Golytely PO 06/19/18 12:00 16 dose TODAY@2000 АННА Administration Pregabalin 75 mg 06/16/18 21:00 06/19/18 08:22 Lyrica PO 07/16/18 20:59 75 mg BID АННА Administration Spironolactone 12.5 mg 06/17/18 09:00 06/19/18 08:23 Aldactone PO 07/17/18 08:59 12.5 mg DAILY АННА Administration Past Medical History Medical History Iron deficiency Afib CAD (coronary artery disease) CHF (congestive heart failure) COPD (chronic obstructive pulmonary disease) DM type 2 (diabetes mellitus, type 2) Depression GERD (gastroesophageal reflux disease) HTN (hypertension) Hyperlipidemia Past Family History Family History Father Heart attack Social History Smoking Status: Former smoker Smoking End Date: 2007 Hx Alcohol Use: No Hx Substance Use: No Physical Exam Vital Signs Last Vital Signs Temp 36.7 C 06/19/18 10:16 Pulse 71 06/19/18 10:16 Resp 20 06/19/18 10:16 BP 124/75 06/19/18 10:16 Pulse Ox 94 06/19/18 10:16 ENMT Mouth: no TMJ abnormality Thyromental Distance: > or= 3.5 Finger Breadths Mallampati Class: II Neck normal visual inspection Respiratory normal respiratory effort Auscultation: lungs clear to auscultation bilaterally Cardiovascular Rate/Rhythm: regular rate and regular rhythm Testing Laboratory Results 06/19/18 06:03 06/19/18 06:03 Blood Type A Positive 06/16/18 13:43 Antibody Screen NEGATIVE 06/16/18 13:43 Hemoglobin A1c 5.2 % (4.5-5.6) 06/17/18 06:11 06/19/18 06/19/18 06/18/18 07:20 03:51 23:39 POC Glucose 103 H 102 H 98
--- NOTE | 2018-06-19 12:03 | GI REPORT ---
Patient Name: Fred Livingston Procedure Date: 06/19/2018 11:15 AM Date of : 1940 Admit Type: Inpatient Age: 77 Gender: Male Attending MD: Moe Morgan DO Procedure: Colonoscopy Providers: Moe Morgan DO Referring MD: Omayra Barron Indications: Melena, Acute post hemorrhagic anemia Medicines: Monitored Anesthesia Care Complications: No immediate complications. Estimated Blood Loss: Estimated blood loss: none. Procedure: Pre-Anesthesia Assessment: - Prior to the procedure, a History and Physical was performed, and patient medications and allergies were reviewed. The patient's tolerance of previous anesthesia was also reviewed. The risks and benefits of the procedure and the sedation options and risks were discussed with the patient. All questions were answered, and informed consent was obtained. Prior Anticoagulants: The patient last took Eliquis (apixaban) 4 days and Plavix (clopidogrel) 4 days prior to the procedure. ASA Grade Assessment: IV - A patient with severe systemic disease that is a constant threat to life. After reviewing the risks and benefits, the patient was deemed in satisfactory condition to undergo the procedure. After I obtained informed consent, the scope was passed under direct vision. Throughout the procedure, the patient's blood pressure, pulse, and oxygen saturations were monitored continuously. The scope was introduced through the anus and advanced to the cecum, identified by appendiceal orifice and ileocecal valve. The colonoscopy was performed without difficulty. The patient tolerated the procedure well. The quality of the bowel preparation was good. The terminal ileum, ileocecal valve, appendiceal orifice, and rectum were photographed. Findings: The perianal and digital rectal examinations were normal. A large amount of stool was found in the entire colon, precluding visualization. Lavage of the area was performed using a large amount of normal saline, resulting in incomplete clearance with continued poor visualization. Two sessile polyps were found in the ascending colon and cecum. The polyps were 4 to 15 mm in size. Polypectomy was not attempted due to inadequate bowel preparation and poor endoscopic visualization. Multiple small-mouthed diverticula were found in the sigmoid colon. Non-bleeding internal hemorrhoids were found during retroflexion. The hemorrhoids were small. Impression: - Stool in the entire examined colon. - Two 4 to 15 mm polyps in the ascending colon and in the cecum. Resection not attempted. - Diverticulosis in the sigmoid colon. - Non-bleeding internal hemorrhoids. - No specimens collected. Recommendation: - Return patient to [facility] for ongoing care. - Advance diet as tolerated. - Continue present medications. - No repeat colonoscopy due to due to multiple medical comorbidities. Moe G. Eddie, DO 06/19/2018 12:02:56 PM This report has been signed electronically. Note Initiated On: 06/19/2018 11:15 AM Number of Addenda: 0 I attest to the content of the Intraoperative Record and orders documented therein, exceptions below {[id number]}
[2018-06-19] MEDS: SODIUM CHLORIDE 0.45 % 1,000 ML IV SCH (13:27)
--- NOTE | 2018-06-19 13:58 | Anesthesiology Progress Note ---
Date of Service June 19, 2018 Anesthesia Post Procedure Vital Signs Vital Signs: Temp Pulse Pulse Resp BP Pulse Ox 06/19/18 13:07 36.2 C L 73 17 171/64 H 99 06/19/18 12:22 72 18 112/56 L 97 06/19/18 12:07 73 18 113/65 98 06/19/18 11:54 65 16 95/39 L 94 06/19/18 10:16 36.7 C 71 20 124/75 94 06/19/18 06:55 37 C 66 20 128/63 96 06/19/18 03:56 36.4 C L 78 20 142/49 H 94 06/18/18 23:12 36.2 C L 67 22 125/53 L 99 06/18/18 20:13 77 06/18/18 18:58 36.6 C 73 20 161/65 H 95 06/18/18 15:02 36.5 C 67 18 165/68 H 100 06/18/18 15:00 70 06/18/18 14:43 36.4 C L 69 17 180/70 H 100 06/18/18 14:22 36.3 C L 70 17 158/59 H 100 06/18/18 14:03 36.3 C L 68 17 166/76 H 98 Notes Mental Status: alert / awake / arousable Patient Amnestic to Procedure: Yes Nausea / Vomiting: adequately controlled Pain: adequately controlled Airway Patency, RR, SpO2: stable & adequate BP & HR: stable & adequate Hydration State: stable & adequate Anesthetic Complications: no major complications apparent and Pt Satisfied with anesthetic care
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
[2018-06-19] MEDS: ACETAMINOPHEN 325 MG TAB PO PRN (23:15)
[2018-06-20] MEDS ORDERED: HydrALAZINE HCL 20 MG/ML VIAL IV STA (01:59)
[2018-06-20] MEDS ORDERED: HydrALAZINE HCL 20 MG/ML VIAL IV PRN (02:00)
[2018-06-20] MEDS: SODIUM CHLORIDE 0.45 % 1,000 ML IV SCH (02:26)
[2018-06-20 06:34] LABS: Basophils # (auto) 0.02 K/uL (0-0.2); Basophils % (auto) 0.4 %; Eosinophils # (auto) 0.39 K/uL (0-0.5); Eosinophils % (auto) 7.9 %; Hematocrit (blood only) 26.3 % (42-52); Hemoglobin 8.3 g/dL (14.0-18.0); Immature Granulocytes # (auto) 0.01 K/uL (0.00-0.02); Immature Granulocytes % (auto) 0.2 %; Lymphocytes # (auto) 0.48 K/uL (1.2-3.4); Lymphocytes % (auto) 9.7 %; Mean Corpuscular Hgb Conc 31.6 g/dL (32-36); Mean Corpuscular Volume 90.4 fL (80-100); Mean Platelet Volume 11.2 fL (7.4-10.4); Monocytes # (auto) 0.78 K/uL (0.11-0.59); Monocytes % (auto) 15.8 %; Neutrophils # (auto) 3.27 K/uL (1.4-6.5); Platelet Count 121 K/uL (130-400); RDW Coefficient of Variation 15.9 % (11.5-14.5); Red Blood Count 2.91 M/uL (4.7-6.1); White Blood Count 4.95 K/uL (4.8-10.8)
[2018-06-20 07:06] LABS: BUN Creatinine Ratio 21.7 (10-20); Calcium 7.8 mg/dl (8.5-10.1); Creatinine Clr Calc Pharmacy 34.6 ml/min; Est GFR (African American) 45.1; Est GFR (Non-African American) 38.9; Magnesium 1.8 mg/dl (1.8-2.4); Phosphorus 3.1 mg/dl (2.5-4.9); Potassium 4.1 mmol/L (3.5-5.1)
[2018-06-20 07:25] LABS: Schistocytes Occasional; Tear Drop Cells 1+
[2018-06-20] MEDS: PANTOprazole 40 MG TAB PO SCH ×2 (08:36→21:22)
[2018-06-20] MEDS: CARVEDILOL 25 MG TAB PO SCH ×2 (08:36→21:23)
[2018-06-20] MEDS: ATORVASTATIN 40 MG TAB PO SCH (08:36)
[2018-06-20] MEDS: [UNRECOGNIZED DRUG - REMARK] INH SCH (08:37)
[2018-06-20] MEDS: INSULIN ASPART 100 UNITS/ML 3 ML PEN SC SCH ×4 (08:40→21:34)
[2018-06-20] MEDS: PREGABALIN 75 MG CAP PO SCH ×2 (08:54→21:33)
--- NOTE | 2018-06-20 12:17 | Nuclear Medicine Report ---
TAGGED RED BLOOD CELL GI BLEEDING SCAN CLINICAL HISTORY: gi bleeding COMPARISON STUDY: CT of the abdomen and pelvis June 16, 2018. TECHNIQUE: Following the IV administration of 30.4 mCi of technetium 99m UltraTag labeled red blood c ells, nuclear bleeding scan was performed. Anterior flow images were obtained every 2 seconds for a t otal 48 seconds. Anterior static images were obtained every 5 minutes for a total of 60 minutes. FINDINGS: Expected radiotracer distribution is noted. There are no sites of abnormal radiotracer upt radha. No findings are noted to suggest active GI bleed during this 60 minute examination. IMPRESSION: No evidence for active GI bleed during this 60 minute exam. Electronically signed by: Loyd Deras M.D. 06/20/2018 12:15 PM
[2018-06-20] MEDS: ACETAMINOPHEN 325 MG TAB PO PRN (14:39)
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
[2018-06-21 06:10] LABS: Basophils # (auto) 0.02 K/uL (0-0.2); Basophils % (auto) 0.4 %; Eosinophils # (auto) 0.39 K/uL (0-0.5); Eosinophils % (auto) 8.2 %; Hematocrit (blood only) 27.1 % (42-52); Hemoglobin 8.6 g/dL (14.0-18.0); Immature Granulocytes # (auto) 0.01 K/uL (0.00-0.02); Immature Granulocytes % (auto) 0.2 %; Lymphocytes # (auto) 0.59 K/uL (1.2-3.4); Lymphocytes % (auto) 12.4 %; Mean Corpuscular Hgb Conc 31.7 g/dL (32-36); Mean Corpuscular Volume 91.2 fL (80-100); Mean Platelet Volume 10.8 fL (7.4-10.4); Monocytes # (auto) 0.53 K/uL (0.11-0.59); Monocytes % (auto) 11.1 %; Neutrophils # (auto) 3.23 K/uL (1.4-6.5); Neutrophils % (auto) 67.7 %; Platelet Count 119 K/uL (130-400); RDW Coefficient of Variation 15.9 % (11.5-14.5); RDW Standard Deviation 52.3 fL (36.4-46.3); Red Blood Count 2.97 M/uL (4.7-6.1); White Blood Count 4.77 K/uL (4.8-10.8)
[2018-06-21 06:33] LABS: BUN Creatinine Ratio 23.8 (10-20); Calcium 7.9 mg/dl (8.5-10.1); Creatinine Clr Calc Pharmacy 37.1 ml/min; Est GFR (African American) 48.9; Est GFR (Non-African American) 42.2; Magnesium 1.8 mg/dl (1.8-2.4); Potassium 4.1 mmol/L (3.5-5.1)
[2018-06-21 06:47] LABS: Ovalocytes 1+; Tear Drop Cells Occasional
[2018-06-21] MEDS: CLOPIDOGREL BISULFATE 75 MG TAB PO SCH (08:50)
[2018-06-21] MEDS: [UNRECOGNIZED DRUG - REMARK] INH SCH (08:50)
[2018-06-21] MEDS: PANTOprazole 40 MG TAB PO SCH ×2 (08:51→20:41)
[2018-06-21] MEDS: ATORVASTATIN 40 MG TAB PO SCH (08:51)
[2018-06-21] MEDS: INSULIN ASPART 100 UNITS/ML 3 ML PEN SC SCH ×4 (08:53→20:43)
[2018-06-21] MEDS: CARVEDILOL 25 MG TAB PO SCH ×2 (09:00→20:40)
[2018-06-21] MEDS: PREGABALIN 75 MG CAP PO SCH ×2 (09:00→20:41)
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
[2018-06-21] MEDS: LISINOPRIL 2.5 MG TAB PO SCH (15:47)
[2018-06-21] MEDS: APIXABAN 5 MG TABLET PO SCH (20:40)
[2018-06-22 06:59] LABS: Basophils # (auto) 0.01 K/uL (0-0.2); Basophils % (auto) 0.2 %; Eosinophils # (auto) 0.34 K/uL (0-0.5); Eosinophils % (auto) 6.1 %; Hematocrit (blood only) 27.1 % (42-52); Hemoglobin 8.5 g/dL (14.0-18.0); Immature Granulocytes # (auto) 0.01 K/uL (0.00-0.02); Immature Granulocytes % (auto) 0.2 %; Lymphocytes # (auto) 0.58 K/uL (1.2-3.4); Lymphocytes % (auto) 10.4 %; Mean Corpuscular Hgb Conc 31.4 g/dL (32-36); Mean Corpuscular Volume 90.3 fL (80-100); Mean Platelet Volume 11.1 fL (7.4-10.4); Monocytes % (auto) 12.5 %; Neutrophils # (auto) 3.96 K/uL (1.4-6.5); Neutrophils % (auto) 70.6 %; Platelet Count 113 K/uL (130-400); RDW Coefficient of Variation 15.9 % (11.5-14.5); RDW Standard Deviation 51.5 fL (36.4-46.3)
[2018-06-22 07:31] LABS: Calcium 8.1 mg/dl (8.5-10.1); Creatinine Clr Calc Pharmacy 32.1 ml/min; Est GFR (African American) 41.2; Est GFR (Non-African American) 35.5; Magnesium 1.8 mg/dl (1.8-2.4); Potassium 4.2 mmol/L (3.5-5.1)
[2018-06-22] MEDS: ATORVASTATIN 40 MG TAB PO SCH (07:34)
[2018-06-22] MEDS: CARVEDILOL 25 MG TAB PO SCH (07:35)
[2018-06-22] MEDS: PANTOprazole 40 MG TAB PO SCH (07:35)
[2018-06-22] MEDS: LISINOPRIL 2.5 MG TAB PO SCH (07:35)
[2018-06-22] MEDS: CLOPIDOGREL BISULFATE 75 MG TAB PO SCH (07:35)
[2018-06-22] MEDS: APIXABAN 5 MG TABLET PO SCH (07:35)
[2018-06-22 07:37] LABS: Tear Drop Cells Occasional
[2018-06-22] MEDS: INSULIN ASPART 100 UNITS/ML 3 ML PEN SC SCH ×2 (07:38→11:56)
[2018-06-22] MEDS: [UNRECOGNIZED DRUG - REMARK] INH SCH (07:39)
[2018-06-22] MEDS: PREGABALIN 75 MG CAP PO SCH (07:41)
--- NOTE | 2018-06-22 08:23 | Anesthesiology Progress Note ---
Date of Service June 22, 2018 Anesthesia Post Procedure Vital Signs Vital Signs: Temp Pulse Resp BP Pulse Ox 06/22/18 06:45 36.7 C 78 17 164/68 H 99 06/22/18 03:25 36.6 C 80 17 181/69 H 97 06/21/18 23:00 36.8 C 83 17 157/62 H 94 06/21/18 19:04 36.6 C 78 18 184/67 H 99 06/21/18 15:13 36.4 C L 76 18 104/49 L 95 06/21/18 13:02 36.0 C L 86 18 183/77 H 98 Notes Mental Status: alert / awake / arousable and participated in evaluation Nausea / Vomiting: adequately controlled Pain: adequately controlled Airway Patency, RR, SpO2: stable & adequate BP & HR: stable & adequate Hydration State: stable & adequate
[2018-06-22] MEDS ORDERED: FOLIC ACID 1 MG TAB PO SCH (09:00)
[2018-06-22] MEDS ORDERED: OMEGA-3 (PURIFIED FISH OIL) 1 GM CAP PO SCH (09:00)
[2018-06-22] MEDS ORDERED: FERROUS SULFATE 325 MG TAB PO SCH (09:00)
[2018-06-22] MEDS ORDERED: SPIRONOLACTONE 25 MG TAB PO SCH (10:45)
[2018-06-22] MEDS ORDERED: FUROSEMIDE 40 MG TAB PO ONE (12:05)
--- NOTE | 2018-06-23 08:55 | Discharge Summary ---
Date of Service June 22, 2018 Admission HPI Per Admitting Provider 77 y/o M who was transferred here from [facility] ED for sx GIB. Pt with hx of same issue and was admitted to [facility]. He was transfused there. He states he had a c-scope but was told he did not drink enough prep and they could not see his colon well enough for a conclusion scope. It appears that at that time pt became frustrated and left AMA. Upon return to home, he resumed his blood thinners. Pt presented to the ED at [facility] on 06/14 with SOB. He had been accepted back to [facility] for continuation of work-up, however I received a call at 7p on 06/15 from the ED at [facility] stating that pt had been there for over 24 hours awaiting transfer but that [facility] still did not have a bed. Pt received 4 units PRBC while at [facility]. Hb was 4.9 on presentation, rechecks were 9.7 -> 9.2. There were no labs from today. There is no GI care at [facility] and given length of time pt waited for acceptance to [facility], pt was approved for transfer to [facility] for ongoing workup. Pt states his SOB is resolved. He states he is on 4L O2 at baseline and feels much better. Pt states that prior to coming to the ED at [facility] on 06/14, he noted black stools. No diarrhea. No chest pain. Pt denies fever, abd pain, n/v, LE pain or swelling. Principal Diagnosis Occult GI Bleed Discharge Exam Constitutional well developed, well nourished and + ill appearing (chronically ill); no acute distress Eyes + anicteric sclerae Neck trachea midline Respiratory normal respiratory effort Auscultation: lungs clear to auscultation bilaterally and + diminished lung sounds Cardiovascular Rate/Rhythm: regular rate and regular rhythm Vessels: no JVD Extremities: no edema Gastrointestinal (Abdomen) Inspection/Auscultation: normal bowel sounds Percussion/Palpation: abdomen soft; abdomen nontender Skin no rashes, warm and dry Neurologic moves all extremities Psychiatric A+Ox3, euthymic affect Discharge Data Allergies Allergy/AdvReac Type Severity Reaction Status Date / Time Penicillins Allergy Intermediate Unknown Verified 06/16/18 13:10 codeine Allergy Unknown Unknown Verified 06/16/18 13:10 diazepam Allergy Unknown Unknown Verified 06/16/18 13:10 niacin Allergy Unknown Unknown Verified 06/16/18 13:10 narcotics Allergy Unknown Uncoded 06/16/18 13:11 Consultations 06/16/18 11:02 Consult Gastroenterology Routine 06/16/18 11:06 Consult Case Management - Discharge Planning Routine 06/16/18 13:28 Consult Health Information Management Stat Procedures Performed Operation Date: 06/18/18 10:25 Actual Procedures p Esophagogastroduodenoscopy - Moe G. Case, DO Operation Date: 06/19/18 08:30 Actual Procedures p Colonoscopy(Not Applicable) - Moe G. Case, DO Ordered Studies TAGGED RED BLOOD CELL GI BLEEDING SCAN FINDINGS: Expected radiotracer distribution is noted. There are no sites of abnormal radiotracer uptake. No findings are noted to suggest active GI bleed during this 60 minute examination. IMPRESSION: No evidence for active GI bleed during this [address] abd pelvis oral con only FINDINGS: Dependent basilar atelectasis with moderate peribronchial thickening. Probable infiltrate of the lingula. Liver spleen and pancreas are unremarkable. Gallstones are present within the gallbladder lumen. There are multiple bilateral renal as well as renal vascular calcifications. These are nonobstructive finding. As 1 cm hyperdense cyst lower pole left kidney. Operative changes consistent with a prior ventral hernia repair. Small medical of bowel considered nonobstructive right anterior abdominal wall. Mildly distended bladder. Considerable atherosclerotic change of the abdominal aorta as well as iliac vasculature with multifocal areas of significant narrowing. 5 mm nonobstructing calculus distal right ureter. IMPRESSION: 1. Nonobstructive bowel pattern. 2. Gallstones. 3. Bibasilar atelectatic change with a probable lingular infiltrate. 4. 5 mm nonobstructing distal right ureteral calculus. 6. Considerable atherosclerotic change of the abdominal and pelvic arterial vasculature with multifocal areas of significant stenotic change. 7. Ventral hernia repair with 2 adjacent bowel containing nonobstructive ventral hernias. 8. Nonobstructive bowel pattern. Hospital Course (1) GIB (gastrointestinal bleeding): - Currently this is occult - had a workup in [facility] but left AMA prior to completion of workup - EGD and Colonoscopy without findings but prep was not completely adequate as well; RBC scan negative for a known GI bleed - Hgb 4.9 at [facility] and transfused 4 units PRBC - maintaining stable Hgb however on the lower end around 8.5 - Patient elected to continue Eliquis and Plavix in setting of CAD/A Fib and Hgb again has remained stable after resumption of this at this time and is feeling better. He is at risk for re-bleed and he is aware and will monitor. Rx given for repeat CBC in next 2-3 days - This could be a multifactorial anemia given anticoagulation/anti-platelet, CKD , ... - Discussed increasing iron supplementation to 325 mg BID as he was only doing this once a day and monitor for constipation; continue folic acid 1 mg daily; continue Protonix 40 mg daily and Zantac 300 mg daily (2) SOB (shortness of breath): - Likely due to above superimposed on chronic respiratory failure from COPD - on chronic 4 L (3) DM type 2 (diabetes mellitus, type 2): - Continue home insulin regimen (4) COPD (chronic obstructive pulmonary disease): - Chronic respiratory failure on 4 L - Continue inhalers; Trelegy (5) CHF (congestive heart failure): - No acute exacerbation - Continue Spironolactone 12.5 mg daily and Lasix 40 mg BID (6) CAD (coronary artery disease): - S/P PCI - Continuing Plavix as above (7) Afib: - Paroxysmal - Resuming Eliquis for CVA prophylaxis (8) ARF (acute renal failure): - Uncertain of baseline but remaining stable (9) Iron deficiency: - Treatment as above Total Time Total Time Spent Total Time Spent (In Minutes): Greater than 30 minutes Discharge Plan Discharge Items Patient Disposition: Home - Self-Care Reason For Visit: GI BLEED Discharge Diagnosis: GI Bleed - Unknown Source Discharge Goals: Decrease discomfort and Increase independence Activity: Resume your previous activity Non-emergency contact: Primary Care Provider Call non-emergency contact if: you have any medication questions, your symptoms worsen and your temperature is above 101 Follow-up/Referrals: Moe Morgan, [Physician] - 07/06/18 12:40 pm (Please, follow up at [facility] Office with Dr. Morgan's associate, Georgiana TREJO, on FridayJuly 06 at 1:00 pm (arrive 12:40 pm). *This office is located at [address] [place] [address] in [facility]). If you need to change this appointment, call the office at [phone].) Hung Aguilar, [Primary Care Provider] - 06/26/18 11:00 am (Please, follow up with Dr. Aguilar on FridayJune 26 at 11:00 am. *If you need to change this appointment, call the office at [phone].) Diet: Carb Consistent or DM2 Addtl Provider Instructions: GI Bleed: - You had an EGD and Colonoscopy that did not reveal a source of blood loss. You also had a bleeding scan that did not show signs of active bleeding. - At this time we do not have a definitive answer for why your blood counts came down. If this is an ongoing issue you may need a capsule study which is a camera in a pill that you swallow which may reveal a source of bleeding - Due to being on blood thinners and Plavix, this can increase your bleeding and likely contributed to the GI bleed but are important for your other conditions. - Recommend to continue your iron supplementation. If able to you try and take this twice a day but it can cause constipation and may need to back it down to just once a day. - Recommend to continue your folic acid supplements to as this helps your body build blood products to get your counts higher with time. - Given your underlying kidney issues you are going to be prone to some anemia as the kidneys are responsible for creating some products that help produce blood. Continue to see your kidney doctor as planned. - Would avoid all NSAIDs (ibuprofen, motrin, advil, naproxyn, etc.) as these can increase bleeding when on Plavix and blood thinners. - Recommend to continue your acid reducing medication (Ranitidine) and Protonix as this can help prevent ulcers. Home Medications: - Continue your home medications as previously prescribed. We did not make changes to these. We can help get a follow-up appointment with Dr. Morgan (the GI doctor) here in [place]. Prescriptions: Continue carvedilol [Coreg] 25 mg tablet 25 mg PO BID RF: 0 spironolactone [Aldactone] 25 mg tablet 12.5 mg PO DAILY RF: 0 ranitidine HCl [Zantac] 300 mg tablet 300 mg PO DAILY RF: 0 clopidogrel [Plavix] 75 mg tablet 75 mg PO DAILY RF: 0 folic acid 1 mg Tablet 1 mg PO DAILY RF: 0 insulin aspart U-100 [Novolog Flexpen U-100 Insulin] 100 unit/mL insulin pen 4 unit subcut ACHS RF: 0 pregabalin [Lyrica] 75 mg capsule 75 mg PO BID RF: 0 omega-3 fatty acids-fish oil [Fish Oil] 340-1,000 mg Capsule 1,000 cap PO DAILY RF: 0 insulin glargine U-300 conc [Toujeo SoloStar U-300 Insulin] 300 unit/mL (1.5 mL) insulin pen 15 unit subcut DAILY RF: 0 ulyavlnwmki-hjtjljmjo-tqrkubam [Trelegy Ellipta] 100-62.5-25 mcg blister with device 1 inh Inhalation DAILY RF: 0 atorvastatin 80 mg Tablet 80 mg PO DAILY RF: 0 pantoprazole [Protonix] 40 mg Tablet,Delayed Release (Dr/Ec) 40 mg PO DAILY RF: 0 nitroglycerin [Nitrostat] 0.4 mg Tablet, Sublingual 0.4 mg Sublingual DIRECTED PRN (Reason: Chest Pain) RF: 0 albuterol sulfate [ProAir HFA] 90 mcg/actuation Hfa Aerosol Inhaler 1 puff INHALATION Q4H PRN (Reason: Shortness Of Breath Or Wheezing) RF: 0 hypromellose [Gonak] 2.5 % Drops 1 drp OPHTHALMIC (EYE) QID PRN (Reason: Dry Eye(S)) RF: 0 apixaban [Eliquis] 5 mg Tablet 5 mg PO BID RF: 0 Changed furosemide [Lasix] 40 mg tablet 40 mg PO BID Qty: 0 RF: 0 ferrous sulfate [iron] 325 mg (65 mg iron) tablet 325 mg PO BID 30 Days Qty: 60 RF: 0 Stand-Alone Forms: [facility] Discharge Orders: Discharge Order (Routine); Ordered 06/22/18 Ordered By: Aretha Ignacio Admission Data Admit Date/Time: 06/16/18 10:40 Attending Provider: David Roque Admit Provider: Omayra Barron Primary Care Provider: Hung Aguilar Other Providers: Moe Morgan ; Omayra Barron Service: Telemetry Other Interventions: Discharge Summary Assessment (RN) Last Done: 06/22/18 13:03 Pending Studies at Discharge: No DC Date/Time DO NOT enter until pt leaves facility: 06/22/18 17:00
== END 2018-06-22 17:00 | disposition home or self-care (01) | DRG 378 ==
LOC: SUATTDRO 06-16 10:40 → 2S 06-16 10:40